=== PATIENT | male | born 1965 | race Two or more races ===

== ENCOUNTER 2025-03-05 21:52 | Emergency (ER) | payer MEDICAID, OTHER ==
[~2025-03-05] VITALS: Ht 167.6 cm; Wt 77.0 kg
--- NOTE | 2025-03-05 22:03 | ED.PDOC ---
HPI Comments 59 y/o [place]i-speaking M presents with c/c of intermittent and nonradiating, mid-sternal chest pain. Poor historian. Patient reports on sudden, unprovoked, and atraumatic onset of 8/10 pain 2 hours prior to ED arrival. No endorsed recent ailments, sick contacts, injuries, or pertinent medical history/events. He denies having any shortness of breath, nausea, vomiting, or further associated symptoms. HPI: north: cp HPI: Poor Historian. Past Medical History: Previous eardrum perforations and infections (currently on Augmentin) Past Surgical History: Left shoulder surgery Social History: Remote history of tobacco abuse (quit 3 years ago) Medications: Denies Allergies: Denies REVIEW OF SYSTEMS: CONSTITUTIONAL: Denies acute: fever, diaphoresis, chills, generalized weakness. HEAD: Denies acute: headache, photophobia Eyes: Denies acute: Double vision, vision loss, eye pain, eye discharge. EARS: Denies acute: tinnitus, hearing loss, ear discharge, ear pain, THROAT: Denies acute: sore throat, swelling, difficulty swallowing , pain with swallowing, change in voice. NECK: Denies acute: neck pain, neck swelling, stiff neck. HEART: Denies acute : palpitations, LUNGS: Denies acute: SOB, wheezing, cough, hemoptysis ABDOMEN: Denies acute: abdominal pain, Nausea, Vomiting, diarrhea, melena , hematemesis, hematochezia SKIN: Denies acute: rash, redness, lesions, itchiness. EXTREMITIES: Denies acute: calf pain, numbness, tingling, weakness, denies pain in extremity. Denies acute: Low back pain. Neuro: Denies acute: focal neurological deficit, motor or sensory focal neurological deficit, tremors, seizure like activity, confusion, dizziness, change in mental status, loss of bowel or bladder function, cauda equina like symptoms. : Denies acute: dysuria, hematuria, flank pain, increase in urinary frequency. PSYCH: Denies acute: hallucination, suicidal ideation, homicidal ideation. PHYSICAL EXAM: General: ----mild----acute distress, awake and alert. Head: normocephalic, atraumatic. No raccoon's eyes, no johnson sign. Neck: supple, trachea is midline, no swelling. Throat: Normal phonation. Eyes:, no erythema, no purulent discharge, no proptosis, no icterus. Heart: regular rate, regular rhythm, no significant murmur appreciated. Lungs: no apparent respiratory distress, Able to speak in full sentences. No wheezing, no rhonchi, no crackles. No stridors Clear to auscultation bilaterally. Abdomen: non tender to palpation, non distended, soft, no guarding, no rebound, + bowel sounds. Neuro: Awake, Alert, oriented to name, self, situation, follows commands GCS=15. Speech is normal. Skin: no petechia, no purpura, no cyanosis, non-pale, not jaundice. Lower extremities: --no - Pitting edema no deformity, no focal swelling, no calf TTP. Makes eye contact. moves all four extremities. Face: no apparent facial droop. Ambulating in the ED independently. ED COURSE: DISCLAIMER: This medical document was created using an electronic medical record system with voice recognition software and computerized dictation system. Although this document has been carefully reviewed, there might still be some phonetic and typographical errors. Occasional wrong-word or "sound-alike" substitutions may have occurred due to the inherent limitations of voice recognition software. These areas are purely typographical due to imperfections of the software programs and do not reflect any compromise in the patient's medical care. Please read the chart carefully and recognize, using context, where these substitutions have occurred. Chief Complaint: Chest Pain Time Seen by MD: 22:00 Reviewed Notes: Allergies Allergies: Coded Allergies: NO KNOWN ALLERGIES (Unverified , 03/05/25) Information Source: Patient Mode of Arrival: Ambulatory EKG EKG #1: Pulse Rate (adult): 60 [place]: Normal Cardiac Rhythm: NSR Block: None Hypertrophy: None ST: Normal EKG #2: Pulse Rate (adult): 56 [place]: Normal Cardiac Rhythm: NSR Block: None Hypertrophy: None ST: Normal Comments T-wave inversion in lead III Was a procedure done? Was a procedure done?: No CP Differential Dx Differential Diagnosis: N/A Differential Diagnosis: Other (Ddx include but not limitied to gastritis, musculoskeletal pain, radiculopathy, atypical chest pain, dissection, aneurysm, ACS, unstable angina, hiatal hernia, GERD, anxiety, costochondritis, PE, pneumothroax, neoplasm, cardiac ischemia, drug abuse, anemia.) X-Ray, Labs, Meds, VS Vital Signs Date Time Temp Pulse Resp B/P (MAP) Pulse Ox O2 Delivery O2 Flow Rate FiO2 03/06/25 02:08 48 03/06/25 00:59 128/76 03/06/25 00:33 56 03/06/25 00:17 56 03/06/25 00:09 66 129/78 (95) 03/06/25 00:04 67 128/76 (93) 03/06/25 00:01 173/86 03/05/25 23:59 57 18 96 Room Air 03/05/25 23:59 99.1 57 18 173/86 (115) 96 99.1 03/05/25 22:52 60 03/05/25 22:10 60 03/05/25 21:52 98.5 59 18 163/71 97 98.5 Lab Test 03/06/25 00:20 03/05/25 23:23 03/05/25 22:02 Range/Units Urine Color Colorless Yellow Urine Clarity Clear Clear Urine pH 5.0 5.0-9.0 Urine Specific [place] 1.008 1.001-1.035 Urine Protein Negative Negative Urine Ketones Negative Negative Urine Blood Trace H Negative /uL Urine Nitrite Negative Negative Urine Bilirubin Negative Negative Urine Urobilinogen Normal Negative mg/dL Urine Leukocyte Esterase Negative Negative /uL Urine RBC <1 0 - 3 /hpf Urine Microscopic WBC < 1 0-3 /HPF Urine Squamous Epithelial Cells None seen <5 /hpf Urine Bacteria None seen None Seen /hpf Urine Glucose Normal Normal mg/dL Troponin I High Sensitivity 3 L 3 L </=54 ng/L White Blood Count 13.4 H 4.4-10.8 10^3/uL Red Blood Count 4.98 4.5-5.90 10^6/uL Hemoglobin 15.4 13.5-17.5 g/dL Hematocrit 43.7 41.0-53.0 % Mean Corpuscular Volume 87.9 80.0-100.0 fL Mean Corpuscular Hemoglobin 31.0 28.0-32.0 pg Mean Corpuscular Hemoglobin Concent 35.3 32.0-36.0 g/dL Red Cell Distribution Width 12.5 11.8-14.3 % Platelet Count 242 140-450 10^3/uL Mean Platelet Volume 7.3 6.9-10.8 fL Neutrophils (%) (Auto) 48.2 37.0-80.0 % Lymphocytes (%) (Auto) 27.7 10.0-50.0 % Monocytes (%) (Auto) 9.1 0.0-12.0 % Eosinophils (%) (Auto) 14.8 H 0.0-7.0 % Basophils (%) (Auto) 0.2 0.0-2.0 % Neutrophils # (Auto) 6.5 1.6-8.6 10 ^3/uL Lymphocytes # (Auto) 3.7 0.4-5.4 10 ^3/uL Monocytes # (Auto) 1.2 0-1.3 10 ^3/uL Eosinophils # (Auto) 2.0 H 0-0.8 10 ^3/uL Basophils # (Auto) 0 0-0.2 10 ^3/uL Nucleated Red Blood Cells 0.1 % Sodium Level 140 136-145 mmol/L Potassium Level 4.2 3.5-5.1 mmol/L Chloride Level 104 98-107 mmol/L Carbon Dioxide Level 26 20-31 mmol/L Anion Gap 10 5-15 Blood Urea Nitrogen 11 9-23 mg/dL Creatinine 0.99 0.700-1.30 mg/dL Glomerular Filtration Rate Calc 87 >90 mL/min BUN/Creatinine Ratio 11.1 10.0-20.0 Serum Glucose 103 74-106 mg/dL Calcium Level 9.5 8.7-10.4 mg/dL Total Bilirubin 1.0 0.2-1.0 mg/dL Aspartate Amino Transferase (AST) 37 13-40 U/L Alanine Aminotransferase (ALT) 47 H 7-40 U/L Alkaline Phosphatase 140 H 46-116 U/L Total Protein 6.9 5.7-8.2 g/dL Albumin 4.3 3.2-4.8 g/dL Current Medications Medications (Trade) Dose Ordered Sig/Elda Route Start Time Stop Time Status Last Admin Aspirin (Ecotrin Enteric Coated Tablet) 325 mg ONCE ONCE PO 03/05/25 22:15 03/05/25 22:16 DC 03/05/25 23:59 Nitroglycerin (Ntrostat Sublingual) 0.4 mg ONCE ONCE SL 03/05/25 22:15 03/05/25 22:16 DC 03/06/25 00:[address] [address] Ph: [phone] DIAGNOSTIC IMAGING Diagnostic Imaging Report : [id number] Signed PATIENT: BERTRAND BRYANT ACCT: [id number] UNIT: [id number] : 1965 LOC: ER ROOM / BED: / AGE / SEX: 59 / M ADM STATUS: REG ER SERVICE 00 ORDERING PHYSICIAN: PHILLIP WRIGHT DO PROCEDURE(s): CXRP - CHEST PORTABLE REASON: cp ORDER NUMBER(s): [id number], ACCESSION NUMBER(s): [id number] INDICATION: cp TECHNIQUE: Frontal view of the chest. COMPARISON: None FINDINGS/IMPRESSION: The lungs are clear. The cardiomediastinal silhouette is unremarkable. No pleural effusion or pneumothorax. No acute osseous abnormality. ATED BY: VANESSA WILBURN MD DICTATED DATE/TIME: 03/05/252232 SIGNED BY: VANESSA WILBURN MD SIGNED DATE/TIME: 03/05/252232 CC: Time of 1ST Reevaluation: 22:30 Reevaluation 1ST: Unchanged Patient Education/Counseling: Diagnosis, Treatment Family Education/Counseling: No Family Present Comments MDM: patient presented with the above HPI.---cardia---workup was initiated. patient was found with the above mentioned diagnosis. the following medications were ordered: please refer to order lists of meds and tests obtained by myself Dr. Wright. Patient has been observed in the ED adequate length of time to insure improvement/stability. Escalation of care considered: Consideration of escalation to observation or admission Patient was ADMITTED to the medicine team for further evaluation and treatment of their presentation. However I was notified that the patient later left against medical advice All the reports of any imaging studies that were ordered by myself were reviewed by myself. SEPSIS Sepsis Screen Physician Orders Production Engineer (03/05/25 ) Chest Portable (03/05/25 22:01) Electrocardigram (03/05/25 22:01) Electrocardigram (03/05/25 23:01) Electrocardigram (03/06/25 01:01) Vital Signs Date Time Temp Pulse Resp B/P (MAP) Pulse Ox O2 Delivery O2 Flow Rate FiO2 03/06/25 02:08 48 03/06/25 00:59 128/76 03/06/25 00:33 56 03/06/25 00:17 56 03/06/25 00:09 66 129/78 (95) 03/06/25 00:04 67 128/76 (93) 03/06/25 00:01 173/86 03/05/25 23:59 57 18 96 Room Air 03/05/25 23:59 99.1 57 18 173/86 (115) 96 99.1 03/05/25 22:52 60 03/05/25 22:10 60 03/05/25 21:52 98.5 59 18 163/71 97 98.5 Laboratory Tests Test 03/05/25 22:02 White Blood Count 13.4 10^3/uL (4.4-10.8) H Medications Medications Dose Ordered Sig/Elda Route Start Time Stop Time Status Last Admin Dose Admin Aspirin 325 mg ONCE ONCE PO 03/05/25 22:15 03/05/25 22:16 DC 03/05/25 23:59 Nitroglycerin 0.4 mg ONCE ONCE SL 03/05/25 22:15 03/05/25 22:16 DC 03/06/25 00:01 Departure 1 Departure Time of Disposition: 22:04 Impression: Primary Impression: Chest pain Disposition: LEFT AGAINST MEDICAL ADVICE Admit to: Tele Condition: Guarded Discharged With: Self Critical Care Note Critical Care Time?: No Heart Score Heart Score: Heart Score Response (Comments) Value History Moderate Suspicious 1 EKG Normal 0 Age 45-64 1 Risk Factors 1 or 2 risk factors 1 Troponin Normal limit 0 Total 3 I personally scribed for PHILLIP WRIGHT DO ([email or web address]) on 03/05/25 at 22:03. Electronically submitted by Chintan Jain ([email or web address]). I personally scribed for PHILLIP WRIGHT DO ([email or web address]) on 03/05/25 at 22:52. Electronically submitted by Chintan Jain ([email or web address]). I personally scribed for PHILLIP WRIGHT DO ([email or web address]) on 03/06/25 at 00:33. Electronically submitted by Chintan Jain ([email or web address]). PHILLIP WRIGHT DO Mar 05, 2025 22:03
[2025-03-05 22:20] LABS: Hematocrit 43.7 % (41.0-53.0); Hemoglobin 15.4 g/dL (13.5-17.5); Mean Corpuscular Hemoglobin 31.0 pg (28.0-32.0); Mean Corpuscular Volume 87.9 fL (80.0-100.0); Nucleated Red Blood Cells % 0.1 %
[2025-03-05 22:29] LABS: Anion Gap 10 (5-15); BUN/Creatinine Ratio 11.1 (10.0-20.0); Blood Urea Nitrogen 11 mg/dL (9-23); Calcium 9.5 mg/dL (8.7-10.4); Carbon Dioxide 26 mmol/L (20-31); Chloride 104 mmol/L (98-107); Glucose 103 mg/dL (74-106); Potassium 4.2 mmol/L (3.5-5.1); Sodium 140 mmol/L (136-145); Total Protein 6.9 g/dL (5.7-8.2)
[2025-03-05 22:30] LABS: Alanine Aminotransferase 47 U/L (7-40); Albumin 4.3 g/dL (3.2-4.8); Alkaline Phosphatase 140 U/L (46-116); Bilirubin, Total 1.0 mg/dL (0.2-1.0)
--- NOTE | 2025-03-05 22:35 | DVH ---
INDICATION: cp TECHNIQUE: Frontal view of the chest. COMPARISON: None FINDINGS/IMPRESSION: The lungs are clear. The cardiomediastinal silhouette is unremarkable. No pleural effusion or pneumothorax. No acute osseous abnormality.
[2025-03-05 23:59] VITALS: RESP 18; TEMP 99.1; O2SAT 96
[2025-03-05] MEDS: ASPirin-EC 325mg tab PO ONE (23:59)
[2025-03-06] MEDS: NITROGLYCERIN 0.4 MG SL TAB SL ONE (00:01)
[2025-03-06 00:09] VITALS: BP 129/78
[2025-03-06 01:41] LABS: Urine Protein, UAD Negative (Negative)
[2025-03-06 02:08] VITALS: PULSE 48
--- NOTE | 2025-03-07 10:51 | ECG ---
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
--- NOTE | 2025-03-07 14:58 | ECG ---
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
--- NOTE | 2025-03-08 06:18 | ECG ---
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
== END 2025-03-06 03:32 | disposition left against medical advice (07) ==
LOC: ER 21:52
DX: R07.2 Precordial pain (principal)
CPT/HCPCS: 36415; 71045; 80053; 81001; 84484; 85025; 93005